=== PATIENT | male | born 1975 | race Two or more races ===

== ENCOUNTER 2022-07-01 17:47 | Inpatient (IN) | payer OTHER ==
[~2022-07-01] VITALS: Ht 172.7 cm; Wt 86.0 kg
[2022-07-01] MEDS ORDERED: traMADol HCL 50 MG TAB PO ONE (20:00)
[2022-07-01] MEDS ORDERED: ONDANSETRON HCL 4 MG/2 ML VIAL IV PRN (21:30)
[2022-07-01 22:06] LABS: Basophils # (auto) 0 10 ^3/uL (0-0.2); Basophils % (auto) 0.5 % (0.0-2.0); Eosinophils # (auto) 0.1 10 ^3/uL (0-0.8); Eosinophils % (auto) 1.1 % (0.0-7.0); Hematocrit 39.4 % (41.0-53.0); Hemoglobin 13.4 g/dL (13.5-17.5); Lymphocytes # (auto) 2.1 10 ^3/uL (0.4-5.4); Mean Corpuscular Hemoglobin 30.2 pg (28.0-32.0); Mean Corpuscular Volume 88.8 fL (80.0-100.0); Monocytes # (auto) 0.6 10 ^3/uL (0-1.3); Monocytes % (auto) 8.6 % (0.0-12.0); Neutrophils # (auto) 4.3 10 ^3/uL (1.6-8.6); Neutrophils % (auto) 59.8 % (37.0-80.0); Nucleated Red Blood Cells % 0.1 %; Red Blood Cells 4.44 10^6/uL (4.5-5.90); Red Cell Distribution Width 12.3 % (11.8-14.3); White Blood Cell 7.1 10^3/uL (4.4-10.8)
[2022-07-01 22:24] LABS: Albumin 3.6 g/dL (3.4-5.0); BUN/Creatinine Ratio 19.2; Calcium 9.5 mg/dL (8.5-10.1)
[2022-07-01 22:26] LABS: Bilirubin, Total 0.7 mg/dL (0.2-1.0); Total Protein 7.5 g/dL (6.4-8.2)
[2022-07-01] MEDS: D5W/SOD CHL 0.45% 1,000 ML IV SCH (22:45)
[2022-07-01 22:46] LABS: INR 1.03 (0.9-1.15); Partial Thromboplastin Time 28.8 sec (24.6-33.4)
[2022-07-01] MEDS: MORPHINE SULFATE 4 MG/ML SYR/VIAL IV PRN (22:51)
[2022-07-02] MEDS: MORPHINE SULFATE 4 MG/ML SYR/VIAL IV PRN ×2 (03:16→09:07)
[2022-07-02 03:23] VITALS: BP 122/77
[2022-07-02] MEDS ORDERED: INFLUENZA QUAD 2022-2023 0.5 ML SYRG IM ONE (04:00)
[2022-07-02 05:03] VITALS: BP 122/77
[2022-07-02] MEDS: D5W/SOD CHL 0.45% 1,000 ML IV SCH ×4 (05:16→23:44)
[2022-07-02 06:55] LABS: Basophils # (auto) 0 10 ^3/uL (0-0.2); Basophils % (auto) 0.4 % (0.0-2.0); Eosinophils # (auto) 0.1 10 ^3/uL (0-0.8); Hematocrit 37.4 % (41.0-53.0); Hemoglobin 12.8 g/dL (13.5-17.5); Lymphocytes # (auto) 1.6 10 ^3/uL (0.4-5.4); Lymphocytes % (auto) 24.8 % (10.0-50.0); Mean Corpuscular Hemoglobin 30.6 pg (28.0-32.0); Mean Corpuscular Hgb Conc. 34.1 g/dL (32.0-36.0); Mean Corpuscular Volume 89.7 fL (80.0-100.0); Monocytes # (auto) 0.5 10 ^3/uL (0-1.3); Monocytes % (auto) 7.3 % (0.0-12.0); Neutrophils # (auto) 4.2 10 ^3/uL (1.6-8.6); Neutrophils % (auto) 66.5 % (37.0-80.0); Red Blood Cells 4.17 10^6/uL (4.5-5.90); White Blood Cell 6.3 10^3/uL (4.4-10.8)
[2022-07-02 09:00] VITALS: BP 119/71
[2022-07-02] MEDS: ENOXAPARIN SOD 40 MG/0.4 ML SYRINGE SC SCH (09:08)
[2022-07-02] MEDS: NAPROXEN 500 MG TAB PO SCH ×2 (10:24→22:12)
[2022-07-02 13:00] VITALS: BP 131/79
[2022-07-02] MEDS: CYCLOBENZAPRINE HCL 10 MG TAB PO SCH ×2 (13:25→22:12)
[2022-07-02 17:00] VITALS: BP 112/67
[2022-07-02] MEDS: HYDROmorphone HCL 2 MG/ML VL/or syr IV PRN ×2 (18:23→23:43)
[2022-07-02 22:00] VITALS: BP 113/71
[2022-07-03] MEDS: HYDROmorphone HCL 2 MG/ML VL/or syr IV PRN ×5 (03:51→22:53)
[2022-07-03 05:00] VITALS: BP 104/66
[2022-07-03] MEDS: CYCLOBENZAPRINE HCL 10 MG TAB PO SCH ×3 (06:59→21:23)
[2022-07-03] MEDS: D5W/SOD CHL 0.45% 1,000 ML IV SCH ×4 (07:00→23:50)
[2022-07-03] MEDS: NAPROXEN 500 MG TAB PO SCH ×2 (08:06→21:23)
[2022-07-03] MEDS: ENOXAPARIN SOD 40 MG/0.4 ML SYRINGE SC SCH (08:07)
[2022-07-03 09:00] VITALS: BP 119/73
[2022-07-03 13:00] VITALS: BP 108/69
[2022-07-03 17:00] VITALS: BP 114/63
[2022-07-03] MEDS ORDERED: DOCUSATE SOD 100 MG CAP PO PRN (18:45)
[2022-07-03 22:00] VITALS: BP 122/73
[2022-07-03] MEDS: ZOLPIDEM TARTRATE 5 MG TAB PO PRN (23:49)
[2022-07-04 05:00] VITALS: BP 108/64
[2022-07-04] MEDS: CYCLOBENZAPRINE HCL 10 MG TAB PO SCH ×3 (05:35→21:30)
[2022-07-04] MEDS: HYDROmorphone HCL 2 MG/ML VL/or syr IV PRN ×4 (08:43→22:12)
[2022-07-04 09:00] VITALS: BP 107/58
[2022-07-04] MEDS: D5W/SOD CHL 0.45% 1,000 ML IV SCH (09:30)
[2022-07-04] MEDS: NAPROXEN 500 MG TAB PO SCH ×2 (10:15→21:30)
[2022-07-04] MEDS: ENOXAPARIN SOD 40 MG/0.4 ML SYRINGE SC SCH (10:15)
[2022-07-04] MEDS: LACTULOSE 20Gm/30ML SOLN PO SCH ×3 (15:14→23:26)
[2022-07-04 16:04] VITALS: BP 105/61
[2022-07-04] MEDS: TAMSULOSIN HYDROCHLORIDE 0.4 MG CAP PO SCH (18:42)
[2022-07-04 22:00] VITALS: BP 117/65
[2022-07-04] MEDS: ZOLPIDEM TARTRATE 5 MG TAB PO PRN (23:27)
[2022-07-05] MEDS: HYDROmorphone HCL 2 MG/ML VL/or syr IV PRN ×6 (01:36→21:17)
[2022-07-05 05:00] VITALS: BP 102/63
[2022-07-05] MEDS: LACTULOSE 20Gm/30ML SOLN PO SCH ×3 (05:27→18:01)
[2022-07-05] MEDS: CYCLOBENZAPRINE HCL 10 MG TAB PO SCH ×3 (05:48→21:40)
[2022-07-05 09:00] VITALS: BP 111/63
[2022-07-05] MEDS: NAPROXEN 500 MG TAB PO SCH ×2 (09:29→21:40)
[2022-07-05] MEDS: ENOXAPARIN SOD 40 MG/0.4 ML SYRINGE SC SCH (09:29)
[2022-07-05 13:00] VITALS: BP 108/65
[2022-07-05 17:00] VITALS: BP 116/59
[2022-07-05] MEDS: TAMSULOSIN HYDROCHLORIDE 0.4 MG CAP PO SCH (18:01)
[2022-07-05 22:00] VITALS: BP 128/75
[2022-07-06] MEDS: HYDROmorphone HCL 2 MG/ML VL/or syr IV PRN ×5 (01:00→20:07)
[2022-07-06] MEDS: LACTULOSE 20Gm/30ML SOLN PO SCH ×5 (01:03→23:54)
[2022-07-06] MEDS: CYCLOBENZAPRINE HCL 10 MG TAB PO SCH ×3 (04:59→22:25)
[2022-07-06 05:00] VITALS: BP 100/49
[2022-07-06 09:00] VITALS: BP 108/67
[2022-07-06] MEDS: ENOXAPARIN SOD 40 MG/0.4 ML SYRINGE SC SCH (10:43)
[2022-07-06] MEDS: NAPROXEN 500 MG TAB PO SCH ×2 (10:43→22:25)
[2022-07-06 12:00] VITALS: BP 109/58
[2022-07-06 16:43] VITALS: BP 116/65
[2022-07-06] MEDS: TAMSULOSIN HYDROCHLORIDE 0.4 MG CAP PO SCH (19:41)
[2022-07-06 21:43] VITALS: BP 107/55
[2022-07-07] MEDS: HYDROmorphone HCL 2 MG/ML VL/or syr IV PRN ×7 (00:07→23:25)
[2022-07-07 04:39] VITALS: BP 99/56
[2022-07-07] MEDS: CYCLOBENZAPRINE HCL 10 MG TAB PO SCH ×3 (05:47→22:04)
[2022-07-07] MEDS: LACTULOSE 20Gm/30ML SOLN PO SCH ×4 (06:00→23:14)
[2022-07-07 08:53] VITALS: BP 106/65
[2022-07-07] MEDS: ENOXAPARIN SOD 40 MG/0.4 ML SYRINGE SC SCH (10:04)
[2022-07-07] MEDS: NAPROXEN 500 MG TAB PO SCH ×2 (10:04→22:04)
[2022-07-07 13:00] VITALS: BP 105/60
[2022-07-07 16:48] VITALS: BP 102/54
[2022-07-07] MEDS: TAMSULOSIN HYDROCHLORIDE 0.4 MG CAP PO SCH (17:55)
[2022-07-07 22:00] VITALS: BP 105/63
[2022-07-07] MEDS: GABAPENTIN 300 MG CAP PO SCH (22:04)
[2022-07-08] MEDS: HYDROmorphone HCL 2 MG/ML VL/or syr IV PRN ×7 (02:34→22:44)
[2022-07-08 05:00] VITALS: BP 129/82
[2022-07-08] MEDS: CYCLOBENZAPRINE HCL 10 MG TAB PO SCH ×3 (05:39→22:44)
[2022-07-08] MEDS: LACTULOSE 20Gm/30ML SOLN PO SCH ×3 (05:39→18:18)
[2022-07-08 09:00] VITALS: BP 113/62
[2022-07-08] MEDS: ENOXAPARIN SOD 40 MG/0.4 ML SYRINGE SC SCH (10:20)
[2022-07-08] MEDS: GABAPENTIN 300 MG CAP PO SCH ×2 (10:20→22:44)
[2022-07-08] MEDS: NAPROXEN 500 MG TAB PO SCH ×2 (10:21→22:44)
[2022-07-08 13:00] VITALS: BP 124/72
[2022-07-08 17:00] VITALS: BP 103/68
[2022-07-08] MEDS: TAMSULOSIN HYDROCHLORIDE 0.4 MG CAP PO SCH (18:18)
[2022-07-08 22:00] VITALS: BP 110/70
[2022-07-09] MEDS: ZOLPIDEM TARTRATE 5 MG TAB PO PRN (00:22)
[2022-07-09] MEDS: LACTULOSE 20Gm/30ML SOLN PO SCH ×5 (00:22→23:44)
[2022-07-09] MEDS: HYDROmorphone HCL 2 MG/ML VL/or syr IV PRN ×7 (01:40→22:25)
[2022-07-09 05:00] VITALS: BP 113/64
[2022-07-09] MEDS: CYCLOBENZAPRINE HCL 10 MG TAB PO SCH ×3 (05:11→22:23)
[2022-07-09 09:00] VITALS: BP 115/52
[2022-07-09] MEDS: GABAPENTIN 300 MG CAP PO SCH ×2 (10:12→22:24)
[2022-07-09] MEDS: NAPROXEN 500 MG TAB PO SCH ×2 (10:12→22:24)
[2022-07-09] MEDS: ENOXAPARIN SOD 40 MG/0.4 ML SYRINGE SC SCH (10:13)
[2022-07-09 13:04] VITALS: BP 121/74
[2022-07-09 15:37] VITALS: BP 100/61
[2022-07-09 17:00] VITALS: BP 101/63
[2022-07-09] MEDS: TAMSULOSIN HYDROCHLORIDE 0.4 MG CAP PO SCH (18:05)
[2022-07-09 22:00] VITALS: BP 112/70
[2022-07-10] MEDS: HYDROmorphone HCL 2 MG/ML VL/or syr IV PRN ×6 (01:35→21:36)
[2022-07-10 05:00] VITALS: BP 103/65
[2022-07-10] MEDS: LACTULOSE 20Gm/30ML SOLN PO SCH ×4 (06:16→23:44)
[2022-07-10] MEDS: CYCLOBENZAPRINE HCL 10 MG TAB PO SCH ×3 (06:16→21:23)
[2022-07-10 09:00] VITALS: BP 101/68
[2022-07-10] MEDS: GABAPENTIN 300 MG CAP PO SCH ×2 (09:24→21:24)
[2022-07-10] MEDS: ENOXAPARIN SOD 40 MG/0.4 ML SYRINGE SC SCH (09:24)
[2022-07-10] MEDS: NAPROXEN 500 MG TAB PO SCH ×2 (09:25→21:24)
[2022-07-10 13:00] VITALS: BP 109/64
[2022-07-10 17:00] VITALS: BP 103/67
[2022-07-10] MEDS: TAMSULOSIN HYDROCHLORIDE 0.4 MG CAP PO SCH (18:00)
[2022-07-10 22:00] VITALS: BP 109/74
[2022-07-11] MEDS: HYDROmorphone HCL 2 MG/ML VL/or syr IV PRN ×8 (00:40→22:45)
[2022-07-11 05:00] VITALS: BP 116/71
[2022-07-11] MEDS: CYCLOBENZAPRINE HCL 10 MG TAB PO SCH ×3 (05:43→22:44)
[2022-07-11] MEDS: LACTULOSE 20Gm/30ML SOLN PO SCH ×4 (05:43→22:44)
[2022-07-11 08:00] VITALS: BP 132/90
[2022-07-11] MEDS: NAPROXEN 500 MG TAB PO SCH ×2 (09:28→22:43)
[2022-07-11] MEDS: GABAPENTIN 300 MG CAP PO SCH ×2 (09:29→22:44)
[2022-07-11] MEDS: ENOXAPARIN SOD 40 MG/0.4 ML SYRINGE SC SCH (09:29)
[2022-07-11] MEDS: DOCUSATE SOD 100 MG CAP PO PRN (12:53)
[2022-07-11 13:00] VITALS: BP 117/67
[2022-07-11] MEDS: TAMSULOSIN HYDROCHLORIDE 0.4 MG CAP PO SCH (16:09)
[2022-07-11 16:48] VITALS: BP 115/77
[2022-07-11 22:00] VITALS: BP 131/80
[2022-07-12] MEDS: HYDROmorphone HCL 2 MG/ML VL/or syr IV PRN ×7 (02:02→20:44)
[2022-07-12 05:00] VITALS: BP 102/75
[2022-07-12] MEDS: CYCLOBENZAPRINE HCL 10 MG TAB PO SCH ×3 (05:04→20:41)
[2022-07-12] MEDS: LACTULOSE 20Gm/30ML SOLN PO SCH ×3 (05:04→17:45)
[2022-07-12 08:00] VITALS: BP 111/66
[2022-07-12] MEDS: NAPROXEN 500 MG TAB PO SCH ×2 (08:18→20:42)
[2022-07-12] MEDS: GABAPENTIN 300 MG CAP PO SCH ×2 (08:18→20:42)
[2022-07-12] MEDS: ENOXAPARIN SOD 40 MG/0.4 ML SYRINGE SC SCH (08:18)
[2022-07-12] MEDS: DOCUSATE SOD 100 MG CAP PO PRN (08:19)
[2022-07-12 12:00] VITALS: BP 114/73
[2022-07-12] MEDS: TAMSULOSIN HYDROCHLORIDE 0.4 MG CAP PO SCH (14:50)
[2022-07-12 16:00] VITALS: BP 111/66
[2022-07-12 22:00] VITALS: BP 113/65
[2022-07-13] MEDS: LACTULOSE 20Gm/30ML SOLN PO SCH ×4 (00:10→18:20)
[2022-07-13] MEDS: HYDROmorphone HCL 2 MG/ML VL/or syr IV PRN ×8 (00:19→22:39)
[2022-07-13 05:00] VITALS: BP 110/70
[2022-07-13] MEDS: CYCLOBENZAPRINE HCL 10 MG TAB PO SCH ×3 (06:30→22:27)
[2022-07-13 09:00] VITALS: BP 119/70
[2022-07-13] MEDS: GABAPENTIN 300 MG CAP PO SCH ×2 (10:13→22:27)
[2022-07-13] MEDS: NAPROXEN 500 MG TAB PO SCH ×2 (10:14→22:27)
[2022-07-13] MEDS: ENOXAPARIN SOD 40 MG/0.4 ML SYRINGE SC SCH (10:15)
[2022-07-13 13:00] VITALS: BP 105/57
[2022-07-13 17:00] VITALS: BP 134/59
[2022-07-13] MEDS: TAMSULOSIN HYDROCHLORIDE 0.4 MG CAP PO SCH (18:20)
[2022-07-13 22:00] VITALS: BP 120/74
[2022-07-14] MEDS: LACTULOSE 20Gm/30ML SOLN PO SCH ×4 (00:40→19:30)
[2022-07-14] MEDS: HYDROmorphone HCL 2 MG/ML VL/or syr IV PRN ×7 (01:33→22:43)
[2022-07-14] MEDS: CYCLOBENZAPRINE HCL 10 MG TAB PO SCH ×3 (04:46→21:42)
[2022-07-14 04:47] VITALS: BP 112/72
[2022-07-14 08:19] VITALS: BP 108/69
[2022-07-14] MEDS: ENOXAPARIN SOD 40 MG/0.4 ML SYRINGE SC SCH (10:38)
[2022-07-14] MEDS: NAPROXEN 500 MG TAB PO SCH ×2 (10:38→21:42)
[2022-07-14] MEDS: GABAPENTIN 300 MG CAP PO SCH ×2 (10:38→21:42)
[2022-07-14 13:18] VITALS: BP 111/66
[2022-07-14 17:00] VITALS: BP 106/63
[2022-07-14] MEDS: TAMSULOSIN HYDROCHLORIDE 0.4 MG CAP PO SCH (19:30)
[2022-07-14 22:00] VITALS: BP_SYST 109; BP_DIAS 69; BP_DIAS 71
[2022-07-15 00:02] VITALS: BP 114/80
[2022-07-15] MEDS: HYDROmorphone HCL 2 MG/ML VL/or syr IV PRN (01:36)
[2022-07-15 02:06] VITALS: BP 115/80
== END 2022-07-15 02:25 | disposition short-term general hospital (02) | DRG 535 ==
LOC: ER 17:47 → EEVIPCON 17:47 → OVERFLOW 21:27 → WEST WING 07-02 02:40
PROVIDERS: ADMIT Internal Medicine; ATTEND Internal Medicine
DX: S32.592A Other specified fracture of left pubis, initial encounter for closed fracture (principal); S32.492A Other specified fracture of left acetabulum, initial encounter for closed fracture; K59.00 Constipation, unspecified; S32.392A Other fracture of left ilium, initial encounter for closed fracture; W06.XXXA Fall from bed, initial encounter; Z20.822 Contact with and (suspected) exposure to COVID-19; N40.0 Benign prostatic hyperplasia without lower urinary tract symptoms; Z79.899 Other long term (current) drug therapy; Y93.89 Activity, other specified; Y92.89 Other specified places as the place of occurrence of the external cause; Y99.8 Other external cause status
CPT/HCPCS: 36415; 72192; 73502; 80053; 85025; 85610; 85730; 87426; 96372; 96374; 96375; G0378; J2405